=== PATIENT | male | born 1960 | race African-American/Black ===

== ENCOUNTER 2025-01-16 13:49 | Outpatient (CLI) | payer MEDICARE, SELFPAY ==
--- NOTE | ~2025-01-16 | XR_ITS ---
MODIFIED ESOPHAGRAM HISTORY: Oropharyngeal dysphagia TECHNIQUE: Modified barium esophagram was performed on 01/16/2025. I administered fluoroscopy and perf ormed the exam with speech pathologist. Patient was seated for lateral fluoroscopic imaging for gustavo stion of thin liquids, pudding, solids and quantified amounts, followed by thin liquids in uncontroll ed amounts. This was recorded on tape. A single fluoroscopic spot image was also recorded. The DAP fo r this procedure was 1.6 Gycm2. The amount of fluoroscopy time used during this procedure was 2.3 min utes. FINDINGS: Oral stage: Adequate function. Pharyngeal stage: There is mild vallecular residue is secondary to reduced tongue base retraction wit h solids which cleared with repeat swallows. No laryngeal penetration or aspiration. Cervical/esophageal stage: Adequate function. IMPRESSION: Minimal pharyngeal dysphagia with no laryngeal penetration or aspiration. Please correla te with speech pathologist findings and specific feeding recommendations. Reviewed, dictated and finalized at location B. IMPRESSION: Minimal pharyngeal dysphagia with no laryngeal penetration or aspir ation. Please correlate with speech pathologist findings and specific feeding recommendations.
--- OUTSIDE RECORDS SUMMARY | 2025-01-16 15:31 | XMS_ITS | Data Portability ---
Author Organization [facility] Strut, Main Office Address [address] [place] [address] Care Team Providers Care Assorter Laundry Name Role Phone JACK STYLES Primary Care Provider Unavailabl e Assessment No assessment recorded. Plan of Treatment Reminders Order Date Submit Date Provider Last Modified By Organization Details Last Modified Time Details Appointments Any 15 2024 02:00P M Jack Styles, FOOD CLERK Not available Not available Not available Lab unlisted lab - CBC study [address] (Lab), [address] [place], [address], 01/15/2025 07:56:56 lipid panel, serum 2024 025 [facility] (Lab), [address] [place], [address], 01/03/2025 14:37:50 CMP, serum or plasma [address] (Lab), [address] [place], [address], 01/15/2025 07:56:56 glycohemo globin, total, blood [address] (Lab), [address] [place], [address], 01/15/2025 07:56:56 glycohemo globin, total, blood [address] (Lab), [address] [place], [address], 05/22/2024 08:50:02 lipid panel, serum 2023 024 [facility] (Lab), [address] [place], [address], 05/15/2024 20:43:04 Referral otolaryng ologist referral - Please call patient to schedule an appointme nt. Thank you. 2024 025 [facility] Wilder Underwood MD, [address], [place], [address], 11/26/2024 11:52:[address] referral - URGENT. Please call patient to schedule an appointme nt. Thank you. [address] [facility], [address] [place] [address] , [address], [place], [address], 11/26/2024 12:10:30 cardiolog ist referral - Please call patient to schedule an appointme nt. Thank you. 2024 025 [facility] Cardiology Department, [address] [place] [address], [address], 11/26/2024 12:11:[address] referral - Would like second opinion. Please call patient to schedule an appointme nt. Thank you. 2024 025 [email or web address] [facility]rology [facility], [facility] [address], [place], [address], 09/25/2024 08:51:09 physical therapist referral - Please call patient to schedule. 2024 025 [email or web address] [facility] Physical Therapy, [address] [place] [address] , [address], [place], [address], 10/09/2024 15:52:49 Procedures None recorded. Surgeries None recorded. Imaging [place], modified barium swallow study - Please fax results to [phone]. Thanks! 2024 025 [facility] Radiology, [address] [place] [address], [place], [address], 12/25/2024 04:22:22 MRI, brain, w/o contrast 2023 024 [email or web address] 56 [facility], [address] [facility], [place], [address], 05/22/2024 09:39:21 Medication Orders nicotine 7 mg/24 hr daily transderm al patch 2024 025 [facility]08114, [address], [place], [id number], 01/02/2025 16:34:29 ergocalci ferol (vitamin D2) 1,250 mcg (50,000 unit) capsule 2024 025 [facility] #16263, [address], [place], [id number], 01/02/2025 16:34:27 sertralin e 100 mg tablet 2024 025 [facility] #06231, [address], [place], [id number], 11/23/2024 15:23:58 clopidogr el 75 mg tablet 2024 025 [facility] #95677, [address], [place], [id number], 11/23/2024 15:23:57 losartan 25 mg tablet 2024 025 [facility] #10051, [address], [place], [id number], 08/29/2024 12:59:05 atorvasta tin 40 mg tablet [address] [facility]01578, [address], [place], [id number], 11/23/2024 14:50:30 nebivolol 10 mg tablet [address] [facility]14366, [address], [place], [id number], 11/23/2024 14:51:38 amlodipin e 10 mg tablet 2023 [facility] #94417, [address], [place], [id number], 05/15/2024 12:34:05 sertralin e 25 mg tablet [address] [facility] #34709, [address], [place], [id number], 08/28/2024 14:22:25 clopidogr el 75 mg tablet 2023 [facility] #68558, [address], [place], [id number], 05/15/2024 12:33:52 Patient TargetsNo targets recorded. 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 [email or web address] Not available 12/13/2024 14:45:53 Reason for Referral Neurologist Referral for Cer ebrovascular accident Would like second opinion. Please call patient to schedule an appointment. Thank you. Referring Physician: Jack Styles, Family Medicine, Encounter Date: 08/28/2024 Physical Therapist Referral for Unsteady when walking Please call patient to schedule. Referring Physician: Jack Styles [facility] Medicine, Encounter Date: 08/28/2024 Wind Turbine Performance Engineer Referral fo r Dysphagia Please call patient to schedule an appointment. Thank you. Referring Physician: Jack Styles [facility] Medicine, Encounter Date: 11/23/2024 Neurologist Referral for Cer ebrovascular accident URGENT. Please call patient to schedule an appointment. Thank you. Referring Physician: Jack Styles [facility] Medicine, Encounter Date: 11/23/2024 Honing Machine Operator Production Referral for Ce rebrovascular accident Please call patient to schedule an appointment. Thank you. Referring Physician: Jack Styles [facility], Encounter Date: 11/23/2024 Results Created Date Observation Date Name Description Value Unit Range Abnormal Flag Note LastModifiedBy Organization Detail LastModifiedTime 06/03/20 24 06/03/2024 MRI, brain , w/o contr ast No observ ation record ed. [address], [place], [address], 06/06/2024 10:12:34 Result Notes None recorded. Problems Name Problem SNOMED Code Status Onset Date Resolution Date Notes Provider Name and Address Organization Details Recorded Time Nocturia 658051427 Active Not Available [facility] 3 08:09:09 Urinary incontinen ce 704794882 Active 2021 Not Available [facility] 3 08:09:09 Serum thyroid stimulatin g hormone level outside reference range 836161320 Active 2017 Not Available [facility] 3 08:09:09 Plantar fasciitis 832038672 Active Not Available [facility] 3 08:09:09 Cerebrovas cular accident 806497475 Active Not Available [facility] 3 08:09:09 Lacunar infarction 153265259 Active Not Available [facility] 3 08:09:10 Mixed anxiety and depressive disorder 912386323 Active 2016 Not Available [facility] 3 08:09:10 Headache 20673909 Active Not Available [facility] 3 08:09:10 Anemia 413270063 Active Not Available [facility] 3 08:09:10 Cerebral ischemia 573634118 Active Not Available [facility] 3 08:09:10 Depressive disorder 06522872 Active 2020 Not Available [facility] 3 08:09:10 Sinusitis 41555670 Active Not Available [facility] 3 08:09:10 Stuttering 01280154 Active 2016 Not Available [facility] 3 08:09:10 Osteoarthr itis 263772215 Active Not Available [facility] 3 08:09:10 Chronic sinusitis 82873996 Active Not Available [facility] 3 08:09:10 Cramp in lower limb 819857929 Active 2016 Not Available [facility] 3 08:09:10 Primary erectile dysfunctio n 656812206 Active 2020 Not Available [facility] 3 08:09:10 Posttrauma tic stress disorder 21357273 Active 2021 Not Available [facility] 3 08:09:10 Forgetful 10053432 Active 2016 Not Available [facility] 3 08:09:10 Hyperlipid emia 25113640 Active [facility] [place] [address] [facility], [address], [address] , [facility] 5 08:58:45 Essential hypertensi on 24922958 Active [facility] [place] [address], [place] [address], [place], [address] , [facility] 5 08:59:00 Posterior rhinorrhea 18240322 Active Not Available [facility] 3 08:09:11 Dysthymia 62064477 Active Not Available [facility] 3 08:09:11 Hyperglyce son 30988595 Active Not Available [facility] 3 08:09:11 Erectile dysfunctio n 544920653 Active 2021 Not Available [facility] 3 08:09:11 Weakness of extremitie s as sequela of stroke 8960432099553 7 Active 2022 Isabel Mcgregor NP [address], [address], [place], [address] , [employer] [facility] 3 14:28:33 CVA - cerebrovas cular accident due to cerebral artery occlusion 364823006 Active 2022 Isabel Mcgregor NP [address], [address], [place], [address] , [employer] [facility] 3 17:36:28 Pain of right shoulder joint 8315536522575 9100 Active 2022 Isabel Mcgregor NP [address], [address], [place], [address] , [employer] [facility] 3 14:52:33 Watery eye 691095718 Active 2023 [facility] [place] [address], [address], [place], [address] , [employer] [facility] 4 11:55:48 Overactive urinary bladder 486806420 Active 2023 [facility] [place] [address], [address], [place], [address] , [employer] [facility] 4 12:04:05 Disorder of prostate 70072388 Active 2023 [facility] [place] [address], [address], [place], [address] , [employer] [facility] 4 09:19:27 Prediabete s 182264916 Active 2023 [facility] [place] [address], [address], [place], [address] , [employer] [facility] 4 12:23:02 Unsteady when walking 97354561 Active 2024 [facility] [place] [address], [address], [place], [address] , [facility] [employer] [facility] 5 14:58:23 Dysphagia 41856497 Active 2024 Mis Vimal mcclain, [facility] [employer] [facility] 5 14:38:38 Esophageal dysphagia 51279019 Active 2024 [facility] [place] [address], [address], [place], [address] , [facility] [employer] [facility] [employer] [facility] 5 09:46:26 Oropharyng eal dysphagia 59719984 Active 2024 Wilder Underwood MD [address], [address], [place], [address] , [facility] [employer] [facility] [employer] [facility] 5 14:44:15 Mixed hyperlipid emia 109543842 Active 2024 [facility] [place] [address], [address], [place], [address] , [facility] [employer] [facility] [employer] [facility] 5 08:59:08 Hypoglycem ia 319693513 Active 2024 [facility] [address], [address], [place], [address] , [facility] [employer] [facility] [employer] [facility] 5 16:24:09 Vitamin D deficiency 94449107 Active 2024 [facility] [place] [address], [address], [place], [address] , [facility] [employer] [facility] [employer] [facility] 5 16:24:32 Nicotine dependence 55498953 Active 2024 [facility] [address], [address], [place], [address] , [facility] [employer] [facility] [employer] [facility] 5 16:30:49 Problem Notes None recorded. Procedures Surgical History Date Name Laterality Status Provider Name and Address Organization Details Recorded Time 05/15/20 24 Cerumen Removal completed [facility] [place] [address] [facility], [address], [place], [address], [facility] [employer] 05/15/2024 12:44:07 11/28/19 24 Medicare Wellness CPT Code, Initial completed October JENNI Bynum [employer] 11/28/2023 09:02:34 06/01/20 21 Colonoscopy completed Not Available [facility] 09/30/19 23 08:06:25 Brain Surgery completed Not Available [facility] 09/29/2022 08:06:25 Imaging Results None recorded. Procedure Notes None recorded. Medical Equipment None Reported. Allergies Allergen ID Allergen Name Allergen Category Reaction Reaction Severity Criticality Documentation Date Start Date Code Code System Note Provider Name and Address Organization Details Recorded Time 46084 Sudafed PE medicatio n Not available Not available Not available 09/29/2022 59289 6 RxNorm Not Available [facility] 3 08:13:19 26672 pseudoeph edrine / triprolid ine medicatio n Not available Not available Not available 09/29/2022 41921 7 RxNorm Not Available [facility] 3 08:13:19 34541 chlorphen iramine / phenyleph rine medicatio n Not available Not available Not available 09/29/2022 88915 3 RxNorm Not Available [facility] 3 08:13:19 Medications Name Sig Start Date Stop Date Status Note LastModified by Organization Details LastModified Time losartan 50 mg tablet TAKE 1 TABLET BY MOUTH EVERY DAY DIRECTED active Not Available Not Available No t Available cyclobenzap rine 10 mg tablet active Not Available Not Available Not Available amoxicillin 500 mg capsule 12/15 completed Not Available Not Available Not Available atorvastati n 40 mg tablet TAKE 1 TABLET BY MOUTH EVERY DAY DIRECTED active Not Available Not Available No t Available atorvastati n 80 mg tablet TAKE 1 TABLET BY MOUTH EVERY NIGHT 01/02 completed Not Available Not Available Not Available azelastine 0.05 % eye drops INSTILL 1 DROP IN AFFECTED EYE(S) TWICE DAILY 11/23 completed Not Available Not Available Not Available doxycycline hyclate 100 mg capsule Take 1 capsule twice a day by oral route for 10 days. active Not Available Not Available No t Available ibuprofen 800 mg tablet active Not Available Not Available Not Available hydrocodone 5 mg-acetamin ophen 325 mg tablet active Not Available Not Available No t Available metoprolol succinate ER 200 mg tablet,exte nded release 24 hr TAKE 1 TABLET BY MOUTH DAILY 2024 active Not Available Not Available Not Avai lable sertraline 100 mg tablet TAKE 1 TABLET BY MOUTH EVERY DAY DIRECTED active Not Available Not Available No t Available Zithromax Z-Miky 250 mg tablet TAKE 2 TABLETS (500 MG) BY ORAL ROUTE ONCE DAILY FOR 1 DAY THEN 1 TABLET (250 MG) BY ORAL ROUTE ONCE DAILY FOR 4 DAYS active Not Available Not Available No t Available amlodipine 2.5 mg tablet Take 1 tablet every day by oral route. 10/08 completed Not Available Not Available Not Available acetaminoph en 300 mg-codeine 30 mg tablet 12/15 completed Not Available Not Available Not Available clopidogrel 75 mg tablet TAKE 1 TABLET BY MOUTH EVERY MORNING active Not Available Not Available No t Available amlodipine 5 mg tablet TAKE 1 TABLET BY MOUTH EVERY DAY 11/23 completed Not Available Not Available Not Available sildenafil 100 mg tablet TAKE 1 TABLET BY MOUTH DAILY NEEDED. MAX 1 TABLET IN 24 HOURS 11/23 completed Not Available Not Available Not Available amoxicillin 875 mg tablet Take 1 tablet every 12 hours by oral route. active Not Available Not Available No t Available prednisolon e acetate 1 % eye drops,suspe nsion INT 1 GTT INTO OS QID FOR 10 DAYS 11/07 completed Not Available Not Available Not Available amlodipine 10 mg tablet TAKE 1 TABLET BY MOUTH EVERY DAY DIRECTED active Not Available Not Available No t Available simvastatin 20 mg tablet TAKE 1 TABLET BY MOUTH EVERY DAY 10/21 completed Not Available Not Available Not Available hydrocodone 7.5 mg-acetamin ophen 750 mg tablet active Not Available Not Available No t Available losartan 25 mg tablet Take 1 tablet every day by oral route as directed for 90 days. 08/29 completed Not Available Not Available Not Available nicotine 21 mg/24 hr daily transdermal patch Apply 1 patch every day by transderm al route as needed for 28 days. 01/02 completed Not Available Not Available Not Available hydrochloro thiazide 12.5 mg capsule TAKE 1 CAPSULE BY MOUTH DAILY 01/02 completed Not Available Not Available Not Available sertraline 25 mg tablet TAKE 1 TABLET BY MOUTH EVERY DAY DIRECTED 08/28 completed Not Available Not Available Not Available aspirin 81 mg chewable tablet CHEW AND SWALLOW ONE TABLET DAILY active Not Available Not Available No t Available hydrocodone 5 mg-acetamin ophen 500 mg tablet active Not Available Not Available No t Available hydrochloro thiazide 25 mg tablet TAKE 1 TABLET BY MOUTH DAILY active Not Available Not Available No t Available ergocalcife rol (vitamin D2) 1,250 mcg (50,000 unit) capsule TAKE 1 CAPSULE BY MOUTH EVERY WEEK DIRECTED active Not Available Not Available No t Available lisinopril 40 mg tablet TAKE 1 TABLET BY MOUTH EVERY DAY 2024 active Not Available Not Available Not Avai lable fluticasone propionate 50 mcg/actuati on nasal spray,suspe nsion SHAKE LIQUID AND USE 1 SPRAY IN EACH NOSTRIL EVERY DAY as needed 2024 active Not Available Not Available Not Avai lable sertraline 50 mg tablet TAKE 1 TABLET BY MOUTH EVERY DAY 01/02 completed Not Available Not Available Not Available amoxicillin 500 mg-potassiu m clavulanate 125 mg tablet TK 1 T PO Q 12 H 04/10 completed Not Available Not Available Not Available nicotine 7 mg/24 hr daily transdermal patch Apply 1 patch every day by transderm al route as needed. 2024 active Not Available Not Available Not Avai lable Cialis 5 mg tablet Take 1 tablet every day by oral route for 90 days. 10/08 completed Not Available Not Available Not Available chlorhexidi ne gluconate 0.12 % mouthwash active Not Available Not Available No t Available aspirin 81 mg po daily 04/27 completed Not Available Not Available Not Available nebivolol 10 mg tablet TAKE 2 TABLETS BY MOUTH DAILY active Not Available Not Available No t Available trospium ER 60 mg capsule,ext ended release 24 hr TAKE 1 CAPSULE BY MOUTH EVERY DAY active Not Available Not Available No t Available Bystolic 20 mg tablet one by mouth daily active Not Available Not Available No t Available Vitals Date Recorded Body height Body mass index (BMI) Body weight Body temperature Heart rate Respiratory rate Oxygen saturation Oxygen saturation in Arterial blood by Pulse oximetry Systolic blood pressure Diastolic blood pressure Provider Name and Address Organization Details Last Updated DateTime 182.88 cm 27.2 kg/m2 85809.9 2 g 97.3 [degF] 62 /min 24 /min 94 % 94 % 142 mm[Hg] 100 mm[Hg] Isabel Klein RN [facility] [employer] [facility] 14:26:07 Date Recorded Systolic blood pressure Diastolic blood pressure Provider Name and Address Organization Details Last Updated DateTime 11/23/2024 128 mm[Hg] 88 mm[Hg] Jakc Styles, FOOD CLERK [address] [facility], [facility] [[email or web address] [address], [place], [address], [facility] [employer] [facility] 11/23/2024 15:18:25 Date Recorded Body height Body mass index (BMI) Body weight Body temperature Heart rate Respiratory rate Oxygen saturation Oxygen saturation in Arterial blood by Pulse oximetry Systolic blood pressure Diastolic blood pressure Provider Name and Address Organization Details Last Updated DateTime 182.88 cm 25.3 kg/m2 24228.6 3 g 97.9 [degF] 63 /min 24 /min 98 % 98 % 122 mm[Hg] 100 mm[Hg] Isabel Klein RN [facility] [employer] [facility] 14:57:00 Date Recorded Body height Body mass index (BMI) Body weight Body temperature Provider Name and Address Organization Details Last Updated DateTime 12/13/2024 182.88 cm 25.2 kg/m2 92639.18 g 97.6 [degF] Luanne Dixon RN [facility] [employer] [facility] 12/13/2024 14:11:51 Date Recorded Body height Body mass index (BMI) Body weight Body temperature Heart rate Oxygen saturation Oxygen saturation in Arterial blood by Pulse oximetry Respiratory rate Systolic blood pressure Diastolic blood pressure Provider Name and Address Organization Details Last Updated DateTime 182.88 cm 24.5 kg/m2 18516.3 8 g 97.3 [degF] 68 /min 97 % 97 % 20 /min 122 mm[Hg] 90 mm[Hg] Isabel Klein RN [facility] [employer] 16:15:21 Date Recorded Body height Body mass index (BMI) Body weight Body temperature Heart rate Respiratory rate Oxygen saturation Oxygen saturation in Arterial blood by Pulse oximetry Systolic blood pressure Diastolic blood pressure Provider Name and Address Organization Details Last Updated DateTime 4 182.88 cm 27.6 kg/m2 85328.0 5 g 97.4 [degF] 63 /min 20 /min 94 % 94 % 180 mm[Hg] 118 mm[Hg] Isabel Klein RN [facility] 4 12:01:07 Social History Question Answer Notes LastModified by Organization Details LastModified Time Tobacco Smoking Status Former Smoker Isabel lKein RN [facility], [employer] [facility] 11/23/2024 14:59:33 Do You Have An Advance Directive? No Information not available 01/02/2025 Is Blood Transfusion Acceptable In An Emergency? Yes Information not available 02/15/2023 What Is Your Level Of Caffeine Consumption? Occasional [id number] Information not available 09/29/2022 How Much Tobacco Do You Chew? None [id number] Information not available 09/29/2022 What Is Your Code Status? DNR Information not available 02/15/2023 In The 14 Days Before Symptom Onset, Have You Had Close Contact With A Laboratory-conf irmed COVID-19 While That Case Was Ill? No [id number] Information not available 09/29/2022 In The 14 Days Before Symptom Onset, Have You Had Close Contact With A Person Who Is Under Investigation For COVID-19 While That Person Was Ill? No [id number] Information not available 09/29/2022 What Type Of Diet Are You Following? REGULAR Needs ENT ReferralPoor Appetitetakes Meds With [employer] Information not available 01/02/2025 Have There Been Any Changes To Your Family Or Social Situation? No Information not available 02/15/2023 Are There Any Guns Present In Your Home? No [id number] Information not available 09/29/2022 Do You Use Insect Repellent Routinely? No Information not available 02/15/2023 Where Do You Live? SingleLevelHouse Information not available 02/15/2023 Advance Directive- Providers Has Reviewed Directive And Consents To Follow Them (insert Provider Name With Any Objectives In Notes Field) No Information not available 05/15/2024 Presence Of Domestic Violence No Information not available 05/15/2024 Guns Present In The Home? Yes Locked Information not available 05/15/2024 Are You Able To Care For Yourself? No Information not available 11/23/2024 Are You Blind Or Do Yo Have Difficulty Seeing? Yes Wears Glasses Information not available 05/15/2024 Are You Deaf Or Do You Have Serious Difficulty Hearing? Yes Information not available 05/15/2024 General Stress Level? High Information not available 05/15/2024 Live Alone Of With Others? With Others Information not available 05/15/2024 Do You Have A Medical Power Of Special Agent Group Insurance? No Information not available 02/15/2023 What Was The Date Of Your Most Recent Tobacco Screening? 11/28/2023 [email or web address] Information not available 11/28/2023 Have You Ever Been Counseled For Unhealthy Alcohol Use? No [id number] Information not available 09/29/2022 Do You Have Any Pets? No Information not available 02/15/2023 What Is Your Relationship Status? Information not available 02/15/2023 Do You Use Your Seat Belt Or Car Seat Routinely? Yes Information not available 02/15/2023 Do You Have Smoke And Carbon Monoxide Detectors In Your Home? Yes Information not available 02/15/2023 Are You Passively Exposed To Smoke? No [id number] Information not available 09/29/2022 Are There Any Smokers In Your House? No Information not available 11/23/2024 How Much Tobacco Do You Smoke? 1 PPW Information not available 01/02/2025 Do You Participate In Social Media? No Information not available 02/15/2023 What Types Of Sporting Activities Do You Participate In? Walk Information not available 02/15/2023 Do You Use Sunscreen Routinely? No Information not available 02/15/2023 How Many Years Have You Smoked Tobacco? 20 Wearing Patch Information not available 11/23/2024 Have You Recently Traveled Abroad? No Information not available 02/15/2023 Sex: Unknown Functional Status Question Answer Note LastModified by Organizat ion Details LastModified Time Do you use any illicit or recreational drugs? No [id number] Information not available 09/29/2022 Do you or have you ever used any other forms of tobacco or nicotine? No [id number] Information not available 09/29/2022 What is your level of alcohol consumption? None Information not available 11/23/2024 Are you currently employed? 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 None Information not available 01/02/2025 Mental Status Question Answer Note LastModified by Organization D etails LastModified Time Do you feel stressed (tense, restless, nervous, or anxious, or unable to sleep at night)? [id number] Information not available 02/15/2023 Family History Relationship Description Onset Age of this Age Resolved Age Notes LastModified by Organization Details LastModified Time Mother Hypertensive disorder [id number] Not available 09/29/2022 08:06:26 Mother Malignant tumor of breast [email or web address] Not available 01/02 16:04:24 Notes:NO ENT Medical History Condition Response BLINDNESS N RHEUMATIC FEVER N KIDNEY STONES N BLADDER PROBLEMS N MRSA N OTHER # 1 N POLIO N LUNG DISEASE/DISORDER N RADIATION / CHEMOTHERAPY N COPD N Other # 2 N BLOOD DISEASES N SURGERY N EAR OR HEARING PROBLEMS N MUMPS N FEMALE PROBLEMS / INFECTIONS N DEPRESSION (INCLUDING POST ) Y BOWEL PROBLEMS N STROKE/TIA Y THYROID DISEASE N ULCERS N BENIGN PROSTATIC HYPERPLASIA N MEASLES N CERVICALGIA N TB SKIN TEST N MYOCARDIAL INFARCTION N PARAPELGIA N OBESITY N GERD/NAUSEA N ANEURYSM N URINARY/BLADDER/KIDNEY PROBLEMS N CORONARY ARTERY DISEASE (CAD) N MENIERE'S DISEASE N ADDICTION CONCERNS N ENDOMETRIOSIS N USE OF BLOOD THINNERS N SKIN PROBLEMS N EMPHYSEMA N GASTROINTESTINAL DISORDER N MUSCLE,JOINT OR BONE PROBLEMS N GASTROINTESTINAL BLEEDING N BLOOD CLOTS N ASTHMA N CATARACTS N ERECTILE DYSFUNCTION N GI PROBLEMS N CHF N Low Testosterone N NEUROPATHY N INFERTILITY N AIDS/HIV N FRACTURES N CHEMOTHERAPY / RADIATION N VISION/EYE PROBLEMS N LIVER DISEASE N MALE HYPOGONADISM N HYPERTENSION Y ANXIETY DISORDER N BLOOD TRANSFUSION N ANEMIA/BLOOD DISORDER N CHRONIC EAR INFECTIONS N BRONCHITIS N TUBERCULOSIS N GLAUCOMA N FOOT PROBLEM N DIVERTICULITIS N SLEEP APNEA N CHICKENPOX N ALLERGIES/HAYFEVER N INFECTIOUS DISEASE N PROSTATE N HEART ARRHYTHMIA N INSOMNIA N HIGH CHOLESTEROL / HYPERLIPIDEMIA Y HYPERTHYROIDISM N EYE PROBLEMS N EATING DISORDER N NEUROLOGICAL PROBLEMS N EDEMA N CHRONIC PAIN SYNDROME N HYPOTHYROIDISM N CONSTIPATION N CAROTID BLOCKAGE N BACK / NECK PROBLEMS N HAVE YOU BEEN HOSPITALIZED OR SEEN IN [facility] ER IN THE PAST YEAR ? N ATHEROSCLEROSIS N BREAST PROBLEMS N DIALYSIS N ECZEMA N FIBROMYALGIA N OSTEOPOROSIS N ARTHRITIS N NO SIGNIFICANT PAST MEDICAL HISTORY N APPENDICITIS N DIABETES, TYPE N BAD TEETH N HEARTBURN / REFLUX N ADD/ADHD N AUTISM SPECTRUM DISORDER (ASD) N HEPATITIS / LIVER DISEASE N PULMONARY DISEASE N GOUT N SLEEP DISORDER N ALZHEIMER'S DISEASE Y PAIN N HERPES N DEMENTIA Y SEIZURES/EPILEPSY N HEADACHES/MIGRAINES N VASCULAR DISEASE N PACEMAKER N DIZZINESS N KIDNEY DISEASE N HEART DISEASE/HEART PROBLEMS N SCARLET FEVER N MULTIPLE SCLEROSIS N MENTAL DISORDER/ILLNESS N DEVELOPMENTAL OR BEHAVIORAL DISORDERS N CARDIAC ARRHYTHMIA N CANCER: SPECIFY N PNEUMONIA N Gall Stones N ATRIAL FIBRILLATION N PULMONARY EMBOLISM N AUTOIMMUNE DISEASE N Immunizations Vaccine Type Date Status Note Provider Nam e and Address Organization Details Recorded Time influenza, unspecified formulation 3 completed Isabel Mcgregor NP [address], [address], [facility] Strut 05/20/2023 14:55:34 influenza, unspecified formulation 2 completed Not Available [facility] 09/29/2022 08:13:08 SARS-COV-2 (COVID-19) vaccine, UNSPECIFIED 2 completed Not Available [facility] 09/29/2022 08:13:08 Influenza, split virus, quadrivalent, preservative 1 completed Not Available [facility] 09/29/2022 08:13:08 SARS-COV-2 (COVID-19) vaccine, UNSPECIFIED 1 completed Not Available [facility] 09/29/2022 08:13:08 SARS-COV-2 (COVID-19) vaccine, UNSPECIFIED 1 completed Not Available [facility] 09/29/2022 08:13:08 SARS-COV-2 (COVID-19) vaccine, UNSPECIFIED 1 completed Not Available [facility] 09/29/2022 08:13:08 Influenza, split virus, quadrivalent, PF 0 completed Not Available [facility] 09/29/2022 08:13:08 Tdap 8 completed Not Available [facility] 09/29/2022 08:13:08 Past Encounters Encounter ID Performer Location Encounter Start Date Encounter Closed Date Diagnosis/Indication Diagnosis SNOMED-CT Code Diagnosis ICD10 Code Diagnosis Note [id number] Isabel Mcgregor NP [facility] [address] 10/03/2020 00:00:00 10/03/2020 16:04:02 [id number] Isabel Mcgregor NP [facility] [address] 1 10/14/2020 00:00:00 10/14/2020 16:13:55 [id number] Prashant Campoverde MD [facility] [address] 11/07/2020 00:00:00 11/07/2020 18:52:23 [id number] Prashant Campoverde MD [facility] [address] 05/22/2021 00:00:00 05/22/2021 12:15:28 [id number] Prashant Campoverde MD [facility] [address] 1 11/20/2021 00:00:00 11/20/2021 09:29:30 [id number] Yfn Hernandes NP [facility] [address] [address] 12/07/2021 00:00:00 12/07/2021 10:08:49 [id number] Yfn Hernandes NP [facility] [address] [place] [address] 1 02/15/2022 00:00:00 02/15/2022 11:08:55 [id number] Isabel Mcgregor NP [address] [address] 04/27/2022 00:00:00 05/03/2022 21:14:19 [id number] Prashant Campoverde MD [address] [address] 08/17/2022 00:00:00 08/17/2022 15:56:59 [id number] [facility] [address] [place] [address] 1 09/13/2022 00:00:00 09/13/2022 14:16:13 [id number] Isabel Mcgregor NP [address] [address] 02/15/2023 13:57:37 02/15/2023 17:55:52 Hyperlipidemia 09188767 E78.5 Atorvastat in 80 mg po nightly Essential hypertension 98100880 I10 Amlodipine 10 mg po daily.HCTZ 12.5 mg po dailyLisin opril 40 mg po dailyNebiv olol 10 mg 2 tab po daily.< 2 gm sodium diet. Posttrauma tic stress disorder 58729959 F43.10 Sertraline 50 mg po daily. Suggested [facility]. Osteoarthritis 495235789 M19.90 Stuttering 83529322 F80. 81 Referred to neuro. Worse since baptiste. Most recent Apr 2022. Speech therapy ordered. Cerebral ischemia 843545 003 I67.82 referring to neuro. 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 Nocturia 163765022 R35.1 Trospium ER 60 mg. Hyperglycemia 63059089 R 73.9 bmp and a1c ordered. Forgetful 50039659 R41.3 Erectile dysfunction 860 548552 F52.21 sildenafil 100 mg. Weakness o f extremities as sequela of stroke 1133531140 9107 M62.81 PT and OT for right sided weakness and gait. Thyroid di sorder screening 252438079 Z13.29 CVA - cere brovascular accident due to cerebral artery occlusion 686852462 I63.50 clopidogre l 75 mg po daily [id number] Isabel Mcgregor NP [address] [address] 05/20/2023 14:22:24 05/20/2023 16:20:17 Pain of right shoulder joint 6871933477 3587167 M25.511 Referring to PT. Heat/ice compress. FU as needed. Do home exercises to get pincer grasp function. Essential hypertension 44878514 I10 Amlodipine 10 mg po daily.HCTZ 12.5 mg po dailyLisin opril 40 mg po dailyNebiv olol 10 mg 2 tab po daily.< 2 gm sodium diet. Weakness o f extremities as sequela of stroke 1392307701 9107 M62.81 has been to PT and OT for right sided weakness and gait. Hyperlipidemia 99253939 E78.5 Atorvastat in 80 mg po nightly [id number] Prashant Campoverde MD [address] [address] 10/28/2023 10:38:51 10/28/2023 12:04:17 Essential hypertension 10337654 I10 Watery eye 841674294 H04 .209 Hyperlipidemia 95738941 E78.5 Depressive disorder 3548 9007 F32.A Overactive urinary bladder 809496203 N32.81 CVA - cere brovascular accident due to cerebral artery occlusion 299320841 I63.50 Erectile dysfunction 860 168828 F52.21 [id number] Prashant Campoverde MD [address] [address] 11/28/2023 08:49:50 11/28/2023 09:29:12 Adult health examination 270189452 Z00.00 Screening for disorder 523817445 Z13.9 Disorder of prostate 302 21065 N42.9 [id number] Prashant Campoverde MD [address] [address] 05/15/2024 11:46:53 05/15/2024 13:01:38 Hyperlipidemia 92241792 E78.5 Cerebral ischemia 694441 003 I67.82 Prediabetes 440900893 R7 3.03 CVA - cere brovascular accident due to cerebral artery occlusion 045930221 I63.50 Essential hypertension 98909973 I10 Depressive disorder 5183 9007 F32.A [id number] Prashant Campoverde MD [address] [address] 08/28/2024 14:02:46 08/28/2024 15:18:02 Essential hypertension 08730539 I10 Will add losartan for better coverage and continue amlodipine 10 mg and lisinopril 40 mg Cerebrovas cular accident 019574015 I63.9 Has evidence of multiple areas of ischemia on recent MRI. Feels current neurologis t is not aggressive with therapies. Would like second opinion Unsteady when walking 22 151266 R26.89 Staggering gait, unable to walk heel-to-to e. LE strengths are equal [id number] [place] [address] [address] 11/23/2024 14:29:28 11/23/2024 15:34:05 Dysphagia 86318056 R13.10 Secondary to CVA, hospital doctor believes he has soft pallet issues Cerebrovas cular accident 812010539 I63.9 Has evidence of multiple areas of ischemia on recent MRI. Feels current neurologis t is not aggressive with therapies. Would like second opinion CVA - cere brovascular accident due to cerebral artery occlusion 387895102 I63.50 Multiple CVAs now, most recent worse than past accidents. Has stopped smoking and drinking energy drinks. He starts a day program on Tuesday Depressive disorder 3025 9537 F32.A Mood worse since CVA [id number] Wilder Underwood MD [facility] [place] [address] [place] [address] 12/13/2024 14:02:52 12/14/2024 08:11:22 Oropharyngeal dysphagia 25155683 R13.12 [id number] Jack Styles, FOOD CLERK [facility] [address] [address] 01/02/2025 15:59:34 01/02/2025 16:55:47 Cerebrovascular accident 325193900 I63.9 Has an appointmen t on TuesdayJanuary [address] Singleton [facility] symptoms are improving with therapy Hypoglycemia 335718080 E 16.2 Associated light headedness , sweating, mental fog Vitamin D deficiency 347 96364 E55.9 Nicotine dependence 5629 4008 F17.200 Has not had a cigarette since his most recent hospitaliz ation Hyperlipidemia 90520886 E78.5 Managed with atorvastat in Health Concerns Section Related Observation LastModified by Organization Detai ls LastModified Time None Recorded Concern Status LastModified by Organization Details LastModified Time None Recorded Advance Directives Directive N: Payers Insurance Date Sequence Insurance Name Policy Number Policy Garsia Covered Member ID Garsia Member ID Guarantor Name 01/02/2025 1 [place] Matt Guardado [id number] 3 Matt Guardado 12/13/2024 2 [place] [address] [id number] Matt Guardado Notes Date Note Type Note Provider Name and Address Organization Details Recorded Time 05/15/2024 text/html Matt Guardado is a 63 year old male patient here to establish care. He was previously under the care of Isabel Mcgregor who is no longer with this clinic. He has hypertension. His blood pressure on arrival today is 180/118. He states that at home he averages 140-150/90-100. He is taking amlodipine 5 mg, HCTZ 12.5 mg, lisinopril 40 mg, and nebivolol 20 mg. He denies light headedness and dizziness. Will increase amlodipine to 10 mg.Matt admits he is drinking 4-6 cans of energy drink per day. Advised to decrease to 2 cans per day. He has a history of a CVA x3. He is taking clopidogrel 75 mg PO daily.His states that he has a decrease of mobility, difficulty finding words, agitation. Concerns with early dementia. Saw neurology on last week and did not discuss this with them. He has a history of hyperlipidemia. His last lipid panel (05/20/2023) resulted with total cholesterol 102 and HDL 28, all other values WNL. He is taking atorvostatin 80 mg PO HS. He has overactive bladder. He is taking trospium 60 mg PO daily. He has a history of depression. He is taking sertraline 50 mg PO daily. He is not doing well emotionally. His states he will lash out easily and has had a few episodes of crying. Matt appears sad today He has erectile dysfunction. He takes sildenafil 100 mg PO PRN. He smokes cigarettes. He smokes 2 packs per months. He has been smoking for approximately 40 years. At his most, he was smoking 1 pack per week. Discussed decreasing for brain health. Flu shot: 4COVID vaccines: 09/2020, 09/2020, 04/2021, 11/2021, 05/12/2024Tdap: 06/2018Shingles vaccines: completedColonoscop y: 2020, 5 year F/U per pt. [facility] [place] [address] [facility], [facility] [[email or web address] [address], [place], [address], [employer] 05/15/2024 12:45:08 08/28/2024 text/html Matt Guardado is a 63 year old female patient here today for a 3 month FU Concerns with elevated BP despite medications, 142/100 on arrival, states at home is high. has concerns with his gait. He is seeing neurology every 6 months. feels that they are not being aggressive enough with treatment. Admits Matt's memory is getting worse [facility] [place] [address] [facility], [facility] [[email or web address] [address], [place], [address], [employer] [facility] [employer] 08/28/2024 15:34:11 11/23/2024 text/html Matt Guardado is a 64 year old male patient here today for a hospital FU He had a CVA on 11/04/24, [facility] he will do this Tuesday-Tuesday 8-3 Has had swallowing difficulty, was told This AM he attempted to shower alone and fell, he has no pain now. Concerns with right hand pain, cold, pins and needles. [facility] [place] [address] [facility] [[email or web address] [address], [place], [address], [employer] 11/23/2024 15:30:49 12/13/2024 text/html this patient had a recent stroke and and has dysphagia. He was seen by Physical therapy and he is receiving swallowing therapy as well. There is no actual choking or reported aspiration. Wilder Underwood MD [address], [place], [address], [employer] 12/13/2024 14:46:26 01/02/2025 text/html Matt MasonConcerns with excessive sweating and weakness this morning, walked into the bathroom and fell. His notes he was shaky and weak - unable to shower himself. He has been losing weight. He has lost 20 lbs since August.He does have swallowing issues, he has a swallowing study scheduled. [place] [address], [facility] [[email or web address] [address], [place], [address], [employer] 01/04/2025 08:39:16
--- NOTE | 2025-01-16 15:53 | STOPEVAL1 ---
Assessment and note entered by Megha Dumont, RELIGIOUS EDUCATION DIRECTOR These treatments will address the objective and functional deficits as defined above. The patient will be advanced safely and appropriately in order for the patient to progress towards his/her prior level of function. Additional exercises will be introduced and as well as a comprehensive home exercise program upon discharge, if needed, ?to ensure carryover of functional gains achieved in the clinic. This treatment plan has been reviewed and agreement upon by the patient.
--- NOTE | 2025-01-17 08:17 | REHSTMBS ---
Assessment and note entered by Megha Dumont, FUR BLOWING MACHINE ATTENDANT Modified Barium Swallow Evaluation Feeding Type Recommended Oral Food Consistency Minced and Moist, Level 5 Liquid Consistency Thin (0) Treatment Recommendations Tongue Base Exercise,Tongue ROM Exercise ST Clinical Summary The patient is a 64 yr old male referred for a MBS study to further evaluate swallow function. Patient reports s/p CVA in October of 2024. That he is currently on a minced moist diet and thin liquids. He reports no swallowing difficulties at this time. The patient was positioned in a lateral view and presented the following consistencies: 5 cc/tsp thin liquid barium, cup amounts thin liquid barium , pudding mixed with barium paste, and cracker coated with barium paste. Oral Stage: When presented tsp amounts barium liquid, cup amounts barium liquid and pudding mixed with barium paste oral preparation and transit were timely without oral residual. When presented cracker coated with barium paste the patient was viewed to have delayed oral preparation and transit as well as premature spillage of the bolus to the level of the vallecula. Oral symptoms are secondary to reduced tongue control and reduced lingual coordination. Pharyngeal Stage: When presented tsp amounts thin liquid barium and cup amounts liquid barium swallow initiation was timely without viewed aspiration or penetration or residual in the vallecula or pyriform sinus. When presented pudding mixed with barium paste and cracker coated with barium paste, mild residual remained in the vallecula following the initial swallow secondary to reduced lingual pressure. Residual was cleared from the vallecula when cued to complete a repeat swallow or alternate with small amounts liquid wash. Recommend: Mince and moist diet Level 5, thin liquid Level 0, small bites and drinks, slow rate of intake, repeat swallow and/or liquid wash (alternating bites and drinks) Treatment techniques: Tongue base retraction exercise, Jeanne, Lingual ROM and Coordination.
== END 2025-01-16 13:50 | disposition home or self-care (01) ==
PROVIDERS: Visit Provider Otolaryngology
DX: R13.12 Dysphagia, oropharyngeal phase (principal)
CPT/HCPCS: 74230; 92611